=== PATIENT | female | born 1950 | race Two or more races ===

== ENCOUNTER 2020-03-08 13:42 | Inpatient (IN) | payer OTHER ==
[~2020-03-08] VITALS: Ht 170.2 cm; Wt 68.0 kg
[2020-03-08] MEDS ORDERED: NEURONTIN800 MG (14:03)
[2020-03-08] MEDS ORDERED: OMEPRAZOLE20 M2 (14:03)
[2020-03-08] MEDS ORDERED: ZOLOFT100 MG (14:04)
[2020-03-08] MEDS ORDERED: RISPERDAL2 MG (14:04)
[2020-03-08] MEDS ORDERED: COZAAR50 MG (14:04)
[2020-03-08] MEDS ORDERED: SINGULAIR10 MG (14:05)
[2020-03-08] MEDS ORDERED: LIPITOR40 M1 (14:05)
== END 2020-03-15 19:20 | disposition home or self-care (01) | DRG 57 ==
LOC: ER 13:42 → SURH 21:40 → MEDI 21:40 → SURH 22:55
PROVIDERS: ADMIT Internal Medicine; ATTEND Internal Medicine
PROC: BW28ZZZ Computerized Tomography (CT Scan) of Head (ICD-10-PCS; principal; 2020-03-08)
PROC: B348ZZZ Ultrasonography of Bilateral Internal Carotid Arteries (ICD-10-PCS; 2020-03-08)
PROC: B342ZZZ Ultrasonography of Left Subclavian Artery (ICD-10-PCS; 2020-03-08)
DX: G91.2 (Idiopathic) normal pressure hydrocephalus (principal); R27.0 Ataxia, unspecified; I10 Essential (primary) hypertension; E78.49 Other hyperlipidemia; E78.00 Pure hypercholesterolemia, unspecified; Z20.828 Contact with and (suspected) exposure to other viral communicable diseases; Z91.81 History of falling